=== PATIENT | female | born 1955 | race Caucasian/White ===

== ENCOUNTER 2022-09-20 08:37 | Emergency (ER) | payer OTHER ==
--- NOTE | 2022-09-20 09:19 | RAD REPORT ---
EXAM DESCRIPTION: CT - CTHCSPWOC - 09/20/2022 9:03 am CLINICAL HISTORY: Trauma, head and neck injury. pain sp fall COMPARISON: No comparisons TECHNIQUE: Axial 5 mm thick images of the head were obtained. Axial 2 mm thick images of the cervical spine were obtained with sagittal and coronal reconstruction images generated and reviewed. All CT scans are performed using dose optimization technique as appropriate and may include automated exposure control or mA/KV adjustment according to patient size. FINDINGS: CT HEAD WITHOUT CONTRAST: No acute hemorrhage, hydrocephalus or extra-axial collection is identified.No areas of brain edema or midline shift. The paranasal sinuses and mastoids are clear.The calvarium is intact. Moderate right scalp hematoma. CT CERVICAL SPINE WITHOUT CONTRAST: No fracture or subluxation.No prevertebral soft tissues swelling is identified. IMPRESSION: No acute intracranial or cervical spine findings.
[2022-09-20] MEDS ORDERED: MORPHINE 2 MG/ML SYR ONE (09:28)
[2022-09-20] MEDS ORDERED: METOCLOPRAMIDE 10 MG/2mL INJ ONE (09:28)
[2022-09-20 09:43] LABS: Absolute Lymphocytes (CBC) 1.3 K/uL (0.7-4.9); Hematocrit 40.6 % (36.0-45.0); Lymphocytes % 9.9 % (15.3-44.8); MCV 100.2 fL (80-100); MPV 8.9 fL (7.6-11.3); RBC Red Blood Cell Count 4.05 M/uL (3.86-4.86)
--- NOTE | 2022-09-20 09:44 | RAD REPORT ---
EXAM DESCRIPTION: RAD - Shoulder Right 2 View - 09/20/2022 9:29 am CLINICAL HISTORY: PAIN COMPARISON: No comparisons FINDINGS: Mild degenerative changes are present involving the glenohumeral joint in the AC joint. No fracture, dislocation or aggressive marrow lesion.
--- NOTE | 2022-09-20 09:44 | RAD REPORT ---
EXAM DESCRIPTION: RAD - Chest Single View - 09/20/2022 9:29 am CLINICAL HISTORY: TRAUMA Chest pain. COMPARISON: No comparisons FINDINGS: Portable technique limits examination quality. The lungs are grossly clear. The heart is normal in size. No displaced fractures. IMPRESSION: No acute intrathoracic process suspected.
--- NOTE | 2022-09-20 09:45 | RAD REPORT ---
EXAM DESCRIPTION: RAD - Hip Right 2 View - 09/20/2022 9:29 am CLINICAL HISTORY: PAIN COMPARISON: No comparisons FINDINGS: Mild arthritic changes affect the right hip. No fracture or dislocation seen. Subtle areas of sclerosis in femoral head could indicate AVN. Recommend nonemergent MRI right hip follow-up.
[2022-09-20 10:00] LABS: Bilirubin Total 0.4 mg/dL (0.2-1.0); Potassium 3.6 mmol/L (3.5-5.1); Protein, Total 7.3 g/dL (6.4-8.2)
[2022-09-20] MEDS ORDERED: KETOROLAC 30 MG/ML INJ ONE (10:22)
[2022-09-20] MEDS ORDERED: ONDANSETRON 4 MG/2 ML VIAL ONE (10:22)
[2022-09-20] MEDS ORDERED: DERMABOND SKIN ADHESIVE TOP ONE (10:32)
[2022-09-20] MEDS ORDERED: NA CHLORIDE 0.9% 1,000 ML ONE (10:41)
--- NOTE | 2022-09-20 12:12 | ER ---
Nurse's Notes [facility] Name: Shayna Palafox Age: 67 yrs Sex: Female : 1955 Arrival Date: 09/20/2022 Time: 08:40 Bed 13 Private MD: Diagnosis: closed head injury, fall, R hip contusion, R shoulder contusion Presentation: 09/20 08:40 Chief complaint: Chief complaint: EMS states: fell out of bed and sent a text aa5 that read "help". Pt does not recall fall. EMS reports laceration to back of head, bleeding controlled. Pt also c/o R shoulder pain and R hip pain. Given 4mg Zofran IVP by EMS, 20 G LAC. C-collar in place. 08:48 Coronavirus screen: At this time, the client does not indicate any symptoms associated aa5 with coronavirus-19. Ebola Screen: Patient denies travel to an Ebola-affected area in the 21 days before illness onset. Initial Sepsis Screen: Does the patient meet any 2 criteria? No. Patient's initial sepsis screen is negative. Does the patient have a suspected source of infection? No. Patient's initial sepsis screen is negative. Risk Assessment: Do you want to hurt yourself or someone else? Patient reports no desire to harm self or others. Onset of symptoms was September 20, 2022. 08:48 Acuity: PABLITO 2 aa5 08:48 Method Of Arrival: EMS: [facility] aa5 Triage Assessment: 13:09 General: Appears distressed, uncomfortable, Behavior is cooperative, quiet, repetitive kr3 questions . Pain: Complains of pain in rigt side of head. Historical: - Allergies: 08:55 No Known Allergies; aa5 - PMHx: 08:55 Hypothyroidism; aa5 - Immunization history:: Adult Immunizations unknown. - Social history:: Smoking status: Patient denies any tobacco usage or history of. Screenin:45 Tuberculosis screening: No symptoms or risk factors identified. kr3 13:09 [facility] ED Fall Risk Assessment (Adult) History of falling in the last 3 months, kr3 including since admission Yes- single mechanical fall (1 pt) Confusion or Disorientation No (0 pts) Intoxicated or Sedated No (0 pts) Impaired Gait No (0 pts) Mobility Assist Device Used No (0 pt) Altered Elimination No (0 pt) Score/Fall Risk Level 0 - 2 = Low Risk. Abuse screen: Denies threats or abuse. Nutritional screening: No deficits noted. Assessment: 09:45 Reassessment: Patient and/or family updated on plan of care and expected duration. Pain kr3 level reassessed. patient is nauseous and repeating questions. 10:45 Reassessment: no longer nauseous, unaware of what happened. kr3 11:45 Reassessment: Patient appears in no apparent distress at this time. Patient and/or kr3 family updated on plan of care and expected duration. Pain level reassessed. Vital Signs: 08:40 BP 123 / 69; Pulse 66; Resp 18 S; Temp 97.7(TE); Pulse Ox 98% on R/A; Weight 61.23 kg aa5 (R); Height 5 ft. 6 in. (167.64 cm) (R); 10:00 BP 90 / 73; Pulse 67; Resp 17; Pulse Ox 100% on R/A; kr3 11:00 BP 113 / 70; Pulse 66; Resp 16; Pulse Ox 98% on R/A; kr3 12:34 BP 107 / 59; Pulse 70; Resp 16; Pulse Ox 99% on R/A; kr3 08:40 Body Mass Index 21.79 (61.23 kg, 167.64 cm) aa5 ED Course: 08:40 Patient arrived in ED. aa5 08:40 Arm band placed on. aa5 08:41 Jaciel Yan MD is Attending Physician. jr11 08:50 Bed in low position. Call light in reach. Side rails up X 1. kr3 08:55 Triage completed. aa5 09:05 CT Head C Spine In Process Unspecified. EDMS 09:31 XRAY Chest (1 view) In Process Unspecified. EDMS 09:31 Hip Right 2 View XRAY In Process Unspecified. EDMS 09:31 Shoulder Right 2 View In Process Unspecified. EDMS 10:05 Chelo Otto, KRISTINE is Primary Nurse. kr3 12:45 No provider procedures requiring assistance completed. IV discontinued, intact, kr3 bleeding controlled, No redness/swelling at site. Pressure dressing applied. Administered Medications: 09:10 Drug: Reglan (metoCLOPramide) 10 mg Route: IVP; Site: left antecubital; kr3 13:08 Follow up: Response: No adverse reaction kr3 09:20 Drug: morphine 2 mg Route: IVP; Infused Over: 4 mins; Site: left antecubital; kr3 13:08 Follow up: Response: No adverse reaction; RASS: Drowsy (-1) kr3 10:20 Drug: Zofran (Ondansetron) 4 mg Route: IVP; Site: left antecubital; kr3 13:08 Follow up: Response: No adverse reaction kr3 10:25 Drug: Ketorolac 15 mg Route: IVP; Site: left antecubital; kr3 13:08 Follow up: Response: No adverse reaction kr3 10:44 Drug: NS 0.9% 1000 ml Route: IV; Rate: 999 bolus; Site: left antecubital; kr3 13:08 Follow up: Response: No adverse reaction; IV Status: Completed infusion; IV Intake: kr3 1000ml Medication: 13:13 VIS not applicable for this client. kr3 Intake: 13:08 IV: 1000ml; Total: 1000ml. kr3 Outcome: 12:12 Discharge ordered by . jr11 13:00 Patient left the ED. kr3 13:12 Discharged to home via wheelchair. kr3 13:12 Condition: stable 13:12 Discharge instructions given to patient, Instructed on discharge instructions, follow up and referral plans. medication usage, Demonstrated understanding of instructions, follow-up care, medications, Prescriptions given X 1. Signatures: Dispatcher [employer] EDMS Karine Ruiz RN RN aa5 Jaciel Yan MD MD jr11 Chelo Otto RN RN kr3 Corrections: (The following items were deleted from the chart) 08:55 08:40 Chief complaint: aa5 aa5 09:02 08:40 Chief complaint: EMS states: fell out of bed and sent a text that read aa5 "help". Pt does not recall fall. EMS reports laceration to back of head, bleeding controlled. Pt also c/o R shoulder pain and R hip pain. Given 4mg Zofran IVP by EMS, 20 G LAC. Chief complaint: EMS states: fell out of bed and sent a text that read "help". Pt does not recall fall. EMS reports laceration to back of head, bleeding controlled. Pt also c/o R shoulder pain and R hip pain. Given 4mg Zofran IVP by EMS, 20 G LAC. aa5 11:29 11:27 Reassessment: Patient and/or family updated on plan of care and expected kr3 duration. Pain level reassessed. patient is nauseous and repeating questions kr3
--- NOTE | 2022-09-20 12:13 | EDPHYS ---
Physician Documentation [facility] Name: Shayna Palafox Age: 67 yrs Sex: Female : 1955 Arrival Date: 09/20/2022 Time: 08:40 Bed 13 Private MD: ED Physician Jaciel Yan HPI: 09/20 08:47 This 67 yrs old Female presents to ER via Unassigned with complaints of Fall Injury. jr11 08:47 Patient is a 67-year-old with history of hypothyroid here that fell off of 4 feet off jr11 of a bed, rolled off. Patient messaged her and said she needed help. Per EMS, she continues with repetitive questions, only complains of pain to the back of her head, 5 out of 10, otherwise right shoulder and right hip pain, not ambulatory at the scene. Denies any other injuries, denies any other complaints. Per EMS, kept forgetting what had happened, unknown LOC but is not on blood thinners. Historical: - Allergies: 08:55 No Known Allergies; aa5 - PMHx: 08:55 Hypothyroidism; aa5 - Immunization history:: Adult Immunizations unknown. - Social history:: Smoking status: Patient denies any tobacco usage or history of. ROS: 08:47 All other systems are negative. jr11 Exam: 08:47 Constitutional: This is a well developed, well nourished patient who is awake, alert, jr11 and in no acute distress. Head/Face: hematoma postrior aspect Eyes: Extra-ocular motions intact. Lids and lashes normal. Conjunctiva and sclera are non-icteric and not injected. Cornea within normal limits. Periorbital areas with no swelling, redness, or edema. ENT: Nares patent. No nasal discharge, no septal abnormalities noted. Oropharynx with no redness, swelling, or masses, exudates, or evidence of obstruction, uvula midline. Mucous membranes moist. Chest/axilla: Normal chest wall appearance and motion. Nontender with no deformity. No lesions are appreciated. MS/ Extremity: Pulses equal, no cyanosis. Neurovascular intact. Full, normal range of motion but ttp and painful ROM mild to R hip R posterior R shoulder, N/V intact distally Vital Signs: 08:40 BP 123 / 69; Pulse 66; Resp 18 S; Temp 97.7(TE); Pulse Ox 98% on R/A; Weight 61.23 kg aa5 (R); Height 5 ft. 6 in. (167.64 cm) (R); 10:00 BP 90 / 73; Pulse 67; Resp 17; Pulse Ox 100% on R/A; kr3 11:00 BP 113 / 70; Pulse 66; Resp 16; Pulse Ox 98% on R/A; kr3 12:34 BP 107 / 59; Pulse 70; Resp 16; Pulse Ox 99% on R/A; kr3 08:40 Body Mass Index 21.79 (61.23 kg, 167.64 cm) aa5 MDM: 08:46 Patient medically screened. 08:47 Differential diagnosis: closed head injury, sprain, strain, Pt not a TPA candidate, jr11 unknown last normal . Data reviewed: vital signs, nurses notes. Historians other than the Patient: Spouse/Significant Other: : normal day yesterday . 08:52 ED course: Differential diagnosis includes subdural bleed epidural bleed, intracranial jr11 bleed, contusion, posterior scalp scalp hematoma secondary to fall. Patient also possibly with a concussion. Patient will get work-up given that she had positive LOC and continues to be confused.. 10:16 Consideration of Admission/Observation Escalation of care including jr11 admission/observation considered. No bleed, will continue to treat her symptomatically for concussion, pt actively vomiting . Independent interpretation of the following test(s) in the Emergency Department CT Scan: My interpretation is No bleed. 10:47 ED course: EKG interpreted by me shows normal sinus rhythm, normal axis, normal jr11 intervals, no acute ST changes.. 12:10 ED course: Pt reassessed, feeling better . 09/20 08:45 Order name: CBC with Diff; Complete Time: 09:54 09/20 08:45 Order name: CMP; Complete Time: 10:15 09/20 08:45 Order name: CT Head C Spine; Complete Time: 09:54 09/20 08:45 Order name: Troponin HS; Complete Time: 10:15 09/20 08:45 Order name: XRAY Chest (1 view); Complete Time: 09:54 09/20 08:45 Order name: Hip Right 2 View XRAY; Complete Time: 09:54 /26 09:12 Order name: Shoulder Right 2 View; Complete Time: 09:54 EDNY 09/20 08:45 Order name: Labs collected and sent; Complete Time: 11:13 09/20 08:45 Order name: EKG; Complete Time: 08:47 09/20 08:45 Order name: Cardiac monitoring; Complete Time: 10:44 09/20 08:45 Order name: EKG - Nurse/Tech; Complete Time: 10:44 09/20 08:45 Order name: IV Saline Lock; Complete Time: 10:06 09/20 08:45 Order name: O2 Per Protocol; Complete Time: 10:06 09/20 08:45 Order name: O2 Sat Monitoring; Complete Time: 10:06 [facility] Administered Medications: 09:10 Drug: Reglan (metoCLOPramide) 10 mg Route: IVP; Site: left antecubital; kr3 13:08 Follow up: Response: No adverse reaction kr3 09:20 Drug: morphine 2 mg Route: IVP; Infused Over: 4 mins; Site: left antecubital; kr3 13:08 Follow up: Response: No adverse reaction; RASS: Drowsy (-1) kr3 10:20 Drug: Zofran (Ondansetron) 4 mg Route: IVP; Site: left antecubital; kr3 13:08 Follow up: Response: No adverse reaction kr3 10:25 Drug: Ketorolac 15 mg Route: IVP; Site: left antecubital; kr3 13:08 Follow up: Response: No adverse reaction kr3 10:44 Drug: NS 0.9% 1000 ml Route: IV; Rate: 999 bolus; Site: left antecubital; kr3 13:08 Follow up: Response: No adverse reaction; IV Status: Completed infusion; IV Intake: kr3 1000ml Disposition Summary: 09/20/22 12:12 Discharge Ordered Location: Home jr11 Condition: Stable jr11 Diagnosis - closed head injury, fall, R hip contusion, R shoulder contusion jr11 Discharge Instructions: - Discharge Summary Sheet jr11 - Contusion jr11 - Concussion, Adult jr11 Forms: - Medication Reconciliation Form jr11 - Thank You Letter jr11 - Antibiotic Education jr11 - Prescription Opioid Use jr11 Prescriptions: - Zofran 4 mg Oral Tablet - take 1 tablet by ORAL route every 12 hours As needed; 20 tablet; Refills: 0, jr11 Product Selection Permitted Signatures: Dispatcher [employer] Karine Jolley, RN RN aa5 Jaciel Yan MD MD jr11 Chelo Otto RN RN kr3 Corrections: (The following items were deleted from the chart) 09:12 08:46 Shoulder 1 View+[email or web address] ordered. EDMS EDMS
[2022-09-20 13:10] VITALS: TEMP 97.7
[2022-09-20 13:13] VITALS: BP 107/59; O2SAT 99
--- NOTE | 2022-09-21 13:18 | EKG ---
Test Date: 2022-09-20 Test Time: 10:42:27 Lard Renderer: LATIA MEASUREMENT RESULTS: Intervals: Rate: 62 [place]: 132 QRSD: 86 QT: 430 QTc: 436 [place]: P: 87 [place]: 132 QRS: 77 T: 69 INTERPRETIVE STATEMENTS: Normal sinus rhythm Normal ECG No previous ECG available for comparison Electronically Signed On 09-21-22 13:15:23 [address] by Nikita Rosario
== END 2022-09-20 13:00 | disposition home or self-care (01) ==
LOC: ER 08:37
DX: S09.90XA Unspecified injury of head, initial encounter (principal); S70.01XA Contusion of right hip, initial encounter; S40.011A Contusion of right shoulder, initial encounter; W06.XXXA Fall from bed, initial encounter; Y93.89 Activity, other specified; Y92.013 Bedroom of single-family (private) house as the place of occurrence of the external cause; E03.9 Hypothyroidism, unspecified
CPT/HCPCS: 85025; 36415; 84484; 80053; 70450; 72125; 71045; 73502; 73030; J2765; J2270; J7030; J2405; 93005